=== PATIENT | female | born 1975 | race Caucasian/White ===

== ENCOUNTER 2022-09-04 19:24 | Emergency (ER) | payer BC, OTHER ==
[2022-09-04 20:25] VITALS: BP 102/67; PULSE 74; RESP 18; TEMP 97.8; BMI 20.9
[2022-09-04 21:01] LABS: PH,URINE 8.5 (5.0-8.0); URINE APPEARANCE CLEAR; URINE BILIRUBIN NEGATIVE (NEGATIVE); URINE COLOR YELLOW; URINE GLUCOSE (UA) NEGATIVE (NEGATIVE); URINE KETONE TRACE (NEGATIVE); URINE LEUK ESTERASE NEGATIVE (NEGATIVE); URINE NITRITE NEGATIVE (NEGATIVE); URINE PROTEIN TRACE (NEGATIVE)
[2022-09-04 21:04] LABS: HCG,QUALITATIVE URINE Negative
== END 2022-09-04 21:11 | disposition home or self-care (01) ==
LOC: JER 19:24
DX: H10.12 Acute atopic conjunctivitis, left eye (principal)
CPT/HCPCS: 81003; 84703; 87086; 87186; 99283-25

== ENCOUNTER 2023-09-18 15:15 | Emergency (ER) | payer OTHER, BC ==
[2023-09-18 15:34] VITALS: BP 98/64; PULSE 61; RESP 18; TEMP 98.3; BMI 45.2
[2023-09-18] MEDS ORDERED: DEXAMETHASONE SOD PHOSPHATE 10 MG/1 ML VIAL IM ONE (16:39)
[2023-09-18] MEDS ORDERED: DEXAMETHASONE SOD PHOSPHATE 10 MG/1 ML VIAL ONE (16:41)
== END 2023-09-18 16:55 | disposition home or self-care (01) ==
LOC: JERFT 15:15
PROC: 3E023GC Introduction of Other Therapeutic Substance into Muscle, Percutaneous Approach (ICD-10-PCS; principal; 2023-09-18)
DX: L30.9 Dermatitis, unspecified (principal)
CPT/HCPCS: 99284-25; J1100